=== PATIENT | female | born 1975 | race Caucasian/White ===

== ENCOUNTER 2018-03-24 07:37 | Emergency (ER) | payer OTHER ==
[~2018-03-24] VITALS: Ht 172.7 cm; Wt 120.2 kg
[~2018-03-24 07:37] MED LIST: GUAIFENESIN-COD10 ML PO; MEDROL4 M2 PO; PROAIR HFA8.5 GM INH
--- NOTE | 2018-03-24 08:17 | ED GI/GU/ABDOMINAL COMPLAINT ---
History of Present Illness General Chief Complaint: Abdominal Pain/Flank Pain Stated Complaint: LEFT SIDED ADB PAIN, X 1 DAY, +D X 1MONTH Source: patient Exam Limitations: no limitations Vital Signs & Intake/Output Vital Signs & Intake/Output Vital Signs Date Time Temp Pulse Resp B/P B/P Pulse O2 O2 Flow FiO2 Mean Ox Delivery Rate 03/24 1127 100.3 03/24 1043 101.7 03/24 1017 101.7 115 20 137/79 97 Room Air 03/24 0747 99.4 118 18 115/76 98 Room Air Allergies Coded Allergies: Fish Containing Products (Intermediate, HIVES 11/14/16) No Known Drug Allergies (Intermediate, NONE 03/24/18) shellfish derived (Intermediate, HIVES 11/14/16) Uncoded Allergies: SEAFOOD (Intermediate, HIVES 04/01/16) Reconcile Medications Sertraline HCl 100 MG TABLET 1 TAB PO DAILY MENTAL HEALTH (Reported) Triage Note: C/O LEFT SIDED ABDOMINAL PAIN X 1 DAY, DIAHRHEA X 4 WEEKS, SINUS CONGESTION X 24 HOURS, WITH DRY COUGH. DENIES . Triage Nurses Notes Reviewed? yes ? N Is pt currently ? No Onset: Gradual Duration: hour(s):, constant, changing over time, continues in ED, getting worse Quality/Severity: severe Location: left upper quadrant HPI: Patient presents for evaluation of the left upper quadrant abdominal pain and tenderness that began yesterday. Patient states she also feels bloated, with low-grade fever off and on over the past 2 days and sinus congestion over the same period. In addition she is also complaining of generalized weakness and "whole body" pain. She saw her primary care physician 2 days ago was diagnosed with a malabsorption syndrome but apparently no specific treatment was initiated. Patient states she's had 5 episodes of nonbloody diarrhea over the past 2 days. No associated vomiting, dysuria, rashes, recent travel or known ill contacts. Patient is currently menstruating. She denies any known history of GI disease. Past History Travel History Traveled to [place] past 21 day No Medical History Any Pertinent Medical History? 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 No Review of Systems Review of Systems Constitutional: Reports: see HPI. EENTM: Reports: see HPI. Respiratory: Reports: no symptoms. Cardiovascular: Reports: no symptoms. GI: Reports: see HPI. Genitourinary: Reports: no symptoms. Musculoskeletal: Reports: no symptoms. Skin: Reports: no symptoms. Neurological/Psychological: Reports: no symptoms. Hematologic/Endocrine: Reports: no symptoms. Immunologic/Allergic: Reports: no symptoms. All Other Systems: Reviewed and Negative Physical Exam Physical Exam Gastrointestinal: sEE BELOW Comments: Gen.: Well-nourished, well-developed, no acute respiratory distress. Head: Normocephalic, atraumatic. Eyes: Normal inspection bilaterally Ears: Normal inspection bilaterally Nose: Normal inspection Throat/mouth : Moist mucosa Neck: Supple, full range of motion, no goiter Heart: Regular rate and rhythm, no murmurs rubs or gallops Lungs: Clear to auscultation bilaterally with normal air entry Chest: Nontender Back: Normal range of motion Abdomen: Soft, tenderness of the suprapubic region, right upper quadrant, epigastric region and left upper quadrant with brief voluntary guarding but no rebound, nondistended, normal bowel sounds Extremities: Normal range of motion grossly, equal radial pulses, no cyanosis clubbing or edema Neurologic: Cranial nerves grossly intact, speech is clear Skin: warm and dry Psychiatric: Calm, cooperative, no apparent delusions or hallucinations Core Measures ACS in differential dx? No Sepsis Present: No Sepsis Focused Exam Completed? No Progress Differential Diagnosis: HYPERSPLENISM, DIVERTICULITIS, COLITIS, RENAL COLIC, RENAL DISEASE Plan of Care: Orders Procedure Date/time Status RAPID VIRAL INFLUENZA A 03/24 1109 Complete URINALYSIS 03/24 813 Complete LIPASE 03/24 813 Complete HUMAN BETA HCG SCREEN 03/24 813 Complete COMPREHENSIVE METABOLIC PANEL 03/24 813 Complete CBC WITHOUT DIFFERENTIAL 03/24 813 Complete Laboratory Tests 03/24/18 0930: Urinalysis LIGHT H, Urine Color YEL, Urine Clarity HAZY H, Urine pH 7.0, Ur Specific Olive 1.020, Urine Protein NEG, Urine Ketones NEG, Urine Nitrite NEG, Urine Bilirubin NEG, Urine Urobilinogen 0.2, Ur Leukocyte Esterase NEG, Ur Microscopic SEDIMENT EXAMINED, Urine RBC 50-75 H, Ur Epithelial Cells FEW, Urine Bacteria RARE H, Urine Mucus RARE, Urine Hemoglobin LARGE H, Urine Glucose NEG 03/24/18 0824: Anion Gap 13, Estimated GFR > 60, BUN/Creatinine Ratio 16.7, Glucose 101 H, Calcium 8.5, Total Bilirubin 0.7, AST 17, ALT 20, Alkaline Phosphatase 65, Total Protein 6.9, Albumin 4.1, Globulin 2.8, Albumin/Globulin Ratio 1.5, Lipase 56, Total Beta HCG NEGATIVE, CBC w Diff NO MAN DIFF REQ, RBC 4.49, MCV 87.1, MCH 29.8, MCHC 34.3, RDW 13.1, MPV 7.8, Gran % 81.5 H, Lymphocytes % 9.5 L, Monocytes % 3.8, Eosinophils % 4.9, Basophils % 0.3, Absolute Granulocytes 4.3, Absolute Lymphocytes 0.5 L, Absolute Monocytes 0.2, Absolute Eosinophils 0.3, Absolute Basophils 0 Microbiology 03/24 1117 NASOPHARYN: Influenza Virus A & B Rapid Smear - COMP Diagnostic Imaging: Discussed w/RAD: CT Scan. Radiology Impression: PATIENT: GABRIELLE TELLES PRESENT AGE: 43 PATIENT ACCOUNT NO: [id number] : 75 LOCATION: [facility] ORDERING PHYSICIAN: Tarun De La Rosa MD SERVICE DATE: 03/24/18 EXAM TYPE : CAT - CT ABD & PELVIS W IV CONTRAST EXAMINATION: CT ABDOMEN AND PELVIS WITH CONTRAST CLINICAL INFORMATION: Left upper quadrant abdominal pain and tenderness. COMPARISON: None TECHNIQUE: Multidetector volumetric imaging was performed of the abdomen and pelvis following IV administration of 95 mL of Optiray 320 intravenous contrast. Sagittal and coronal reformatted images were obtained on the technologist's workstation. DLP: 1130 mGy-cm FINDINGS: LUNG BASES: The visualized lung bases are unremarkable. LIVER, GALLBLADDER, AND BILIARY TREE: The liver is normal in size, shape, and attenuation. No focal hepatic lesion or biliary ductal dilatation is present. Cholecystectomy. PANCREAS: Unremarkable. SPLEEN: Unremarkable. Small splenule. ADRENAL GLANDS: Unremarkable. KIDNEYS AND URETERS: The kidneys are normal in size, shape, and attenuation. No hydronephrosis, hydroureter, or calculi seen. No perinephric stranding. BLADDER: Unremarkable. GASTROINTESTINAL TRACT: The small and large bowel are unremarkable. The appendix is unremarkable. ABDOMINAL WALL: Small fat- containing periumbilical hernia. LYMPH NODES: Normal. VASCULAR: Unremarkable. PELVIC VISCERA: There is an intrauterine device in place. There is a right sided follicle/cyst within the adnexa measuring 2.1 cm. There is a surgical clip along the dorsal margin of the uterine wall. OSSEOUS STRUCTURES: Unremarkable. IMPRESSION: - No acute inflammatory change in the abdomen or pelvis. - No evidence of nephrolithiasis or appendicitis. - An intrauterine device is in place. DICTATED BY: Patrice Carrion MD DATE/TIME DICTATED:03/24/181023 SHOVEL ENGINEER:MAYURI DATE/TIME TRANSCRIBED:03/24/181023 CONFIDENTIAL, DO NOT COPY WITHOUT APPROPRIATE AUTHORIZATION. <Electronically signed in Other Vendor System> SIGNED BY: Patrice Carrion MD 03/24/18 1039 Initial ED EKG: none Comments: 03/24/2018 11:08:18 AM I have updated Adeline on her test results. The emergency department evaluation is unrevealing but given her fever and diarrhea we have discussed the possibility of a viral illness along with the possibility of self- limited bacterial enteritis. The patient has had no further diarrhea here in the emergency department but I have advised her if she does to allow us to obtain a specimen for culture. She states she just received a phone call from someone at work was been diagnosed with the flu. I will order a flu swab. Departure Departure Disposition: HOME OR SELF CARE Condition: Stable Clinical Impression Primary Impression: Viral syndrome Referrals: Willow MCNAIR,Asher Reynaga (PCP/Family) Additional Instructions: Zofran as needed for nausea or vomiting. Levsin as needed for abdominal pain. Tylenol or ibuprofen as needed for fever or muscle aches or chills. Drink lots of fluids. Follow-up with your primary care physician if not improving by Tuesday. At if you have further diarrhea please obtain a specimen for testing and bring it to your primary care physician. Return if any concerns or sudden worsening. Please note that there might be incidental findings in your evaluation that are unrelated to the current emergency department visit. Please notify your primary care doctor about this emergency department visit in order to obtain and review all of the testing performed so that these incidental findings can be monitored as needed. If you had an x-ray performed, please understand that some fractures may not be seen on the initial set of x-rays. If your symptoms persist you might need a repeat set of x-rays to check for such a fracture. If you had a laceration evaluated, please understand that foreign bodies such as glass or wood may not be visible to the naked eye or on plain x-rays. If the wound becomes red, swollen, increasingly more painful or if there is any drainage from the wound, please have it reevaluated by a physician for the possibility of a retained foreign body. If you're unable to follow up as outlined in the discharge instructions please return to the emergency department. Thank you for choosing the [facility] Emergency Department for your care. It was a pleasure to serve you today. Tarun De La Rosa M.D. [facility] Departure Forms: Customer Survey General Discharge Information Prescriptions: Current Visit Scripts Ondansetron (Zofran Odt) 1 TAB SL Q6 PRN NAUSEA/VOMITING #10 TAB Hyoscyamine (Levsin) 1-2 TAB PO Q6P PRN ABDOMINAL CRAMPS #20 TAB
[2018-03-24 08:41] LABS: ABSOLUTE BASOPHIL COUNT 0 /CUMM (0.0-0.2); ABSOLUTE EOSINOPHIL COUNT 0.3 /CUMM (0.0-0.7); ABSOLUTE GRANULOCYTE CT 4.3 /CUMM (1.4-6.5); ABSOLUTE LYMPH COUNT 0.5 /CUMM (1.2-3.4); ABSOLUTE MONOCYTE COUNT 0.2 /CUMM (0.10-0.60); BASOPHIL % 0.3 % (0.0-2.0); EOSINOPHIL % 4.9 % (0-5); GRANULOCYTE % 81.5 % (42.2-75.2); HEMATOCRIT 39.1 % (37-47); MEAN CORPUSCULAR HGB 29.8 PG (27.0-31.0); MEAN CORPUSCULAR HGB CONC 34.3 G/DL (33.0-37.0); MEAN CORPUSCULAR VOLUME 87.1 FL (81.0-99.0); MEAN PLATELET VOLUME 7.8 FL (7.4-10.4); PLATELET COUNT 329 /CUMM (130-400); RBC DISTRIBUTION WIDTH 13.1 % (11.5-14.5); RED BLOOD CELL CT 4.49 /CUMM (4.20-5.40); WHITE BLOOD CELL COUNT 5.3 /CUMM (4.8-10.8)
--- NOTE | 2018-03-24 10:39 | CT SCAN REPORT ---
EXAMINATION: CT ABDOMEN AND PELVIS WITH CONTRAST CLINICAL INFORMATION: Left upper quadrant abdominal pain and tenderness. COMPARISON: None TECHNIQUE: Multidetector volumetric imaging was performed of the abdomen and pelvis following IV administration of 95 mL of Optiray 320 intravenous contrast. Sagittal and coronal reformatted images were obtained on the technologist's workstation. DLP: 1130 mGy-cm FINDINGS: LUNG BASES: The visualized lung bases are unremarkable. LIVER, GALLBLADDER, AND BILIARY TREE: The liver is normal in size, shape, and attenuation. No focal hepatic lesion or biliary ductal dilatation is present. Cholecystectomy. PANCREAS: Unremarkable. SPLEEN: Unremarkable. Small splenule. ADRENAL GLANDS: Unremarkable. KIDNEYS AND URETERS: The kidneys are normal in size, shape, and attenuation. No hydronephrosis, hydroureter, or calculi seen. No perinephric stranding. BLADDER: Unremarkable. GASTROINTESTINAL TRACT: The small and large bowel are unremarkable. The appendix is unremarkable. ABDOMINAL WALL: Small fat-containing periumbilical hernia. LYMPH NODES: Normal. VASCULAR: Unremarkable. PELVIC VISCERA: There is an intrauterine device in place. There is a right sided follicle/cyst within the adnexa measuring 2.1 cm. There is a surgical clip along the dorsal margin of the uterine wall. OSSEOUS STRUCTURES: Unremarkable. IMPRESSION: - No acute inflammatory change in the abdomen or pelvis. - No evidence of nephrolithiasis or appendicitis. - An intrauterine device is in place.
[2018-03-24] MEDS ORDERED: SERTRALINE HCL100 MG PO (11:09)
[2018-03-24] MEDS ORDERED: LEVSIN0.125 M1 PO (12:03)
[2018-03-24] MEDS ORDERED: ZOFRAN ODT4 M1 SL (12:03)
[2018-03-24 12:20] VITALS: BP 130/80
== END 2018-03-24 12:21 ==
LOC: ERH 07:37
PROVIDERS: Emergency Medicine
DX: B34.9 Viral infection, unspecified (principal); R10.12 Left upper quadrant pain; R50.9 Fever, unspecified
CPT/HCPCS: 74177; 81001; 87804; 87804-59; 96374; J0131